=== PATIENT | male | born 1955 | race Two or more races ===

== ENCOUNTER 2018-09-18 06:30 | Inpatient (IN) | payer OTHER ==
[2018-09-16 10:09] LABS: BASOPHILS % 0.6 % (0.0-1.0); EOSINOPHILS # (AUTO) 0.4 (0.0-0.4); EOSINOPHILS % 5.9 % (0.0-6.0); HEMATOCRIT 48.8 % (38.2-49.6); HEMOGLOBIN 16.5 g/dL (14.0-18.0); LYMPHOCYTES # (AUTO) 2.3 (1.0-3.2); LYMPHOCYTES % 35.8 % (18.0-39.1); MEAN CORPUSCULAR HEMOGLOBIN 28.6 pg (28-32); MEAN CORPUSCULAR HGB CONC 33.8 g/dL (31-35); MEAN CORPUSCULAR VOLUME 84.7 fL (81-99); MONOCYTES # (AUTO) 0.5 (0.2-0.8); MONOCYTES % 8.6 % (4.4-11.3); NEUTROPHILS # (AUTO) 3.1 (2.1-6.9); NEUTROPHILS % 48.8 % (38.7-80.0); PLATELET COUNT 191 x10e3/uL (140-360); RED BLOOD COUNT 5.76 x10e6/uL (4.3-5.7); RED CELL DISTRIBUTION WIDTH 12.2 % (11.7-14.4)
[2018-09-16 10:28] LABS: INR 0.81; PARTIAL THROMBOPLASTIN TIME 26.3 seconds (23.8-35.5); PROTHROMBIN TIME 11.7 seconds (11.9-14.5)
[2018-09-16 10:38] LABS: ALANINE AMINOTRANSFERASE 32 IU/L (0-55); ALBUMIN 3.9 g/dL (3.5-5.0); ALKALINE PHOSPHATASE 57 IU/L (40-150); ANION GAP 11.2 mmol/L (8-16); BLOOD UREA NITROGEN 21 mg/dL (7-26); BUN/CREATININE RATIO 18 (6-25); CALCIUM 9.6 mg/dL (8.4-10.2); CARBON DIOXIDE 25 mmol/L (22-29); CHLORIDE 102 mmol/L (98-107); CREATININE, SERUM 1.18 mg/dL (0.72-1.25); EST GLOMERULAR FILTRATION RATE > 60 ML/MIN (60-); GLUCOSE 216 mg/dL (74-118); POTASSIUM 4.2 mmol/L (3.5-5.1); SODIUM 134 mmol/L (136-145)
[~2018-09-18] VITALS: Ht 170.2 cm; Wt 80.8 kg
[~2018-09-18 06:30] MED LIST: FARXIGA PO; FINASTERIDE5 MG PO; LOSARTAN POTASS25 MG PO; METFORMIN HCL500 MG PO; PRANDIN1 MG PO
--- OUTSIDE RECORDS SUMMARY | 2018-09-18 06:32 | XMS REPORT ---
Author Author [facility] Address Unknown Phone Unavailable Care Team Providers Care Local Tanker Truck Driver Name Role Phone Unavailable Unavailable Problems This patient has no known problems. Allergies, Adverse Reactions, Alerts This patient has no known allergies or adverse reactions. Medications This patient has no known medications. Encounters Start Date/Time End Date/Time Encounter Type Admission Type Attending Clinicians Care Facility Care Department Encounter ID 2017-07-14 00:00:00 2017-07-15 00:00:[address] [facility] [id number]
[2018-09-18] MEDS ORDERED: CEFTRIAXONE SOD 1 GM/NS 50 ML 50 ML IV ONE (07:36)
[2018-09-18] MEDS: GENTAMICIN 80MG/NS 100 ML 200 ML IV ONE (07:48)
[2018-09-18] MEDS ORDERED: INSULIN REGULAR, HUMAN 100 UNIT/1 ML 3ML VIAL ONE ×2 (09:32→12:18)
[2018-09-18] MEDS ORDERED: IOPAMIDOL 610MG/1ML 300 MG/ML VIAL IV ONE (10:01)
[2018-09-18] MEDS ORDERED: B&O 60MG R/S 60 MG SUPP PR ONE (10:01)
[2018-09-18] MEDS ORDERED: ONDANSETRON HCL INJ 2MG/ML 2ML 2 MG/ML VIAL IV PRN (11:45)
[2018-09-18] MEDS ORDERED: DIPHENHYDRAMINE HCL 25 MG CAP PO PRN (11:45)
[2018-09-18] MEDS: CEFTRIAXONE SOD 1 GM/NS 50 ML 50 ML IV SCH (11:45)
[2018-09-18] MEDS ORDERED: BELLADONNA/OPIUM 30 MG SUPP RC PRN (11:45)
[2018-09-18 12:06] LABS: BASOPHILS % 0.6 % (0.0-1.0); EOSINOPHILS # (AUTO) 0.3 (0.0-0.4); EOSINOPHILS % 4.7 % (0.0-6.0); HEMATOCRIT 48.3 % (38.2-49.6); HEMOGLOBIN 16.1 g/dL (14.0-18.0); LYMPHOCYTES # (AUTO) 2.8 (1.0-3.2); LYMPHOCYTES % 45.2 % (18.0-39.1); MEAN CORPUSCULAR HEMOGLOBIN 28.6 pg (28-32); MEAN CORPUSCULAR HGB CONC 33.3 g/dL (31-35); MEAN CORPUSCULAR VOLUME 85.9 fL (81-99); MONOCYTES # (AUTO) 0.5 (0.2-0.8); MONOCYTES % 7.9 % (4.4-11.3); NEUTROPHILS # (AUTO) 2.6 (2.1-6.9); NEUTROPHILS % 41.4 % (38.7-80.0); PLATELET COUNT 159 x10e3/uL (140-360); RED BLOOD COUNT 5.62 x10e6/uL (4.3-5.7)
[2018-09-18 12:30] VITALS: BP 166/86
[2018-09-18 12:59] LABS: ANION GAP 11.7 mmol/L (8-16); BLOOD UREA NITROGEN 17 mg/dL (7-26); BUN/CREATININE RATIO 16 (6-25); CALCIUM 8.6 mg/dL (8.4-10.2); CARBON DIOXIDE 25 mmol/L (22-29); CHLORIDE 104 mmol/L (98-107); CREATININE, SERUM 1.05 mg/dL (0.72-1.25); EST GLOMERULAR FILTRATION RATE > 60 ML/MIN (60-); GLUCOSE 223 mg/dL (74-118); POTASSIUM 4.7 mmol/L (3.5-5.1); SODIUM 136 mmol/L (136-145)
--- NOTE | 2018-09-18 13:00 | NUR ---
RECEIVED PATIENT FROM RECOVERY. PATIENT A/O X3 EVEN RESPIRATIONS ON RA. BOWEL SOUNDS ACTIVE, SKIN INTACT, NO EDEMA. SCD'S BILATERALLY. RUIZ IN PLACE, CBI- MESSER COLOR URINE, NO CLOTS. PATIENT AMBULATORY WITH STANDBY ASSIST. RIGHT HAND 20 GAUGE IV WITH IVF @ 75 CC/HR. BED LOW, WHEELS LOCKED, SIDE RAILS X2. CALL LIGHT IN REACH WILL CONTINUE TO MONITOR PATIENT.
[2018-09-18] MEDS: PHENAZOPYRIDINE HCL 100 MG TAB PO SCH ×2 (13:09→17:39)
[2018-09-18 13:22] VITALS: BP 166/86
[2018-09-18] MEDS ORDERED: MIDAZOLAM HCL 2 MG/2 ML VIAL ONE (13:51)
[2018-09-18] MEDS ORDERED: FENTANYL CITRATE/PF 100MCG/2 ML INJ ONE (13:51)
[2018-09-18] MEDS ORDERED: DEXTROSE 50% SYRINGE 50 ML IV PRN (15:00)
[2018-09-18] MEDS ORDERED: HYDRALAZINE HCL 25 MG TAB PO PRN (15:00)
[2018-09-18 15:45] VITALS: BP_SYST 74
[2018-09-18] MEDS: SOD CHL 0.45%/POT CHL 20MEQ 1,000 ML IV SCH ×2 (16:29→22:40)
[2018-09-18] MEDS: DOCUSATE SODIUM 100 MG CAP PO SCH (17:39)
[2018-09-18] MEDS: INSULIN LISPRO 100 UNIT/1 ML 3ML VIAL SQ SCH ×2 (17:39→20:32)
[2018-09-18] MEDS: REPAGLINIDE 1 MG TAB PO SCH (17:39)
[2018-09-18] MEDS ORDERED: PROPOFOL IV EMULSION 10 MG/ML 20 ML VIAL ONE (17:55)
[2018-09-18] MEDS ORDERED: ONDANSETRON HCL INJ 2MG/ML 2ML 2 MG/ML VIAL ONE (17:55)
[2018-09-18] MEDS ORDERED: LIDOCAINE HCL 2% LOCAL INJ 5 ML SDV VIAL INJ ONE (17:55)
[2018-09-18] MEDS ORDERED: PHENYLEPHRINE HCL 1% 10 MG/ML VIAL ONE (17:55)
[2018-09-18] MEDS ORDERED: FUROSEMIDE INJ 10 MG/ML 4 ML VIAL ONE (17:55)
[2018-09-18] MEDS ORDERED: SEVOFLURANE INHAL SOLN 250 ML PEN BTL ONE (17:55)
--- NOTE | 2018-09-18 19:08 | NUR ---
received patient aaox3, stable condition, resting in bed at this time. no needs voiced. bradley cath to CBI0 output strawberry/orange. denies pain. will continue to monitor. call light within reach, bed locked and in lowest position.
[2018-09-18 20:00] VITALS: BP 146/81
[2018-09-18 20:16] VITALS: BP 146/81
--- NOTE | 2018-09-18 21:46 | History and Physical ---
PRIMARY CARE PHYSICIAN: Desiree Gilbert MD. COMPUTER SYSTEM SPECIALIST: Dr. Bull Marrero. REASON FOR ADMISSION: Status post transurethral resection procedures. The patient has enlarged prostate with urinary retention. HISTORY: The patient is 63-year-old male status post TURP procedures today. The patient is stable. The patient had normal WBC 6.17, hemoglobin and hematocrit of 16 and 48. The patient is on NURSE ADMINISTRATOR pump, IV fluid and he does have continuous urinary bladder irrigation for hematuria and postoperative care. The patient is stable at this time. PAST MEDICAL HISTORY: Enlarged prostate, hypertension, diabetes, colon cancer. PAST SURGICAL HISTORY: Tumor resection in 2008 that is benign. SOCIAL HISTORY: The patient does not smoke or use alcohol. No recreational drugs. ALLERGIES: NO KNOWN ALLERGIES. HOME MEDICATION: Finasteride, losartan, metformin, Prandin, and Farxiga. PHYSICAL EXAMINATION: VITAL SIGNS: Temperature is 98, blood pressure 166/86, pulse rate is 65, respiration 18. GENERAL: The patient is not in acute distress. He is awake. HEENT: Normocephalic, atraumatic. Anicteric. NECK: Supple grossly. PULMONARY: Clear. CARDIOVASCULAR: Regular rhythm. ABDOMEN: Soft. Postop Nuno catheter in place. Continue with irrigation. EXTREMITIES: No cyanosis or edema. NEUROLOGIC: No gross focal deficit. LABORATORY DATA: Sodium is 136, potassium 4.7, chloride 104, bicarb 25, BUN 17, creatinine 1.05. Glucose is 223. IMPRESSION: 1. Status post postop today transurethral resection of the prostate. The patient has a Nuno catheter. He is on continuous irrigation for the urinary bladder. 2. Diabetes type 2, on oral hypoglycemic medication with hyperglycemia postop now. 3. Hypertension. PLAN: Adjust home medication. Insulin sliding scale coverage. Postoperative care. NURSE ADMINISTRATOR, patient-controlled IV fluid, continuous irrigation. Incentive spirometry. MD RANDALL Blackwood/MODL /[id number]
[2018-09-19] VITALS (8 sets, daily range): BP systolic 117–134; BP diastolic 63–76
[2018-09-19] MEDS: ACETAMINOPHEN/CODEINE 300MG - 30MG TAB PO PRN ×2 (01:16→20:38)
[2018-09-19] MEDS: SOD CHL 0.45%/POT CHL 20MEQ 1,000 ML IV SCH (06:29)
--- NOTE | 2018-09-19 07:22 | NUR ---
RECEIVED PATIENT AWAKE IN BED NO SIGNS OF DISTRESS. BED LOW, WHEELS LOCKED, SIDE RAILS X2. CALL LIGHT IN REACH WILL CONTINUE TO MONITOR PATIENT.
--- NOTE | 2018-09-19 08:15 | NUR ---
PATIENT A/O X3, UNLABORED RESPIRATIONS ON RA. PATIENT AMBULATORY. SCD'S AND COMPRESSION STOCKINGS BILATERALLY. RUIZ IN PLACE- CBI, URINE COLOR CLEAR ORANGE. RIGHT HAND 20 GAUGE IV WITH IVF @ 75 CC/HR. VITAL SIGNS STABLE, NO SIGNS OF DISTRESS. CALL LIGHT IN REACH WILL CONTINUE TO MONITOR PATIENT.
[2018-09-19] MEDS: FINASTERIDE 5 MG TAB PO SCH (08:52)
[2018-09-19] MEDS: LOSARTAN POTASSIUM 25 MG TAB PO SCH (08:52)
[2018-09-19] MEDS: REPAGLINIDE 1 MG TAB PO SCH ×3 (08:52→17:17)
[2018-09-19] MEDS: DOCUSATE SODIUM 100 MG CAP PO SCH ×2 (08:52→17:17)
[2018-09-19] MEDS: PHENAZOPYRIDINE HCL 100 MG TAB PO SCH ×3 (08:52→17:17)
[2018-09-19] MEDS: INSULIN LISPRO 100 UNIT/1 ML 3ML VIAL SQ SCH ×4 (08:55→21:55)
[2018-09-19 09:03] LABS: BASOPHILS % 0.4 % (0.0-1.0); EOSINOPHILS # (AUTO) 0.2 (0.0-0.4); EOSINOPHILS % 2.1 % (0.0-6.0); HEMATOCRIT 47.6 % (38.2-49.6); HEMOGLOBIN 16.3 g/dL (14.0-18.0); LYMPHOCYTES # (AUTO) 1.9 (1.0-3.2); LYMPHOCYTES % 17.7 % (18.0-39.1); MEAN CORPUSCULAR HEMOGLOBIN 29.1 pg (28-32); MEAN CORPUSCULAR HGB CONC 34.2 g/dL (31-35); MONOCYTES # (AUTO) 0.8 (0.2-0.8); MONOCYTES % 7.3 % (4.4-11.3); NEUTROPHILS # (AUTO) 7.8 (2.1-6.9); PLATELET COUNT 169 x10e3/uL (140-360)
[2018-09-19 09:16] LABS: ANION GAP 10.8 mmol/L (8-16); BLOOD UREA NITROGEN 12 mg/dL (7-26); BUN/CREATININE RATIO 11 (6-25); CALCIUM 8.5 mg/dL (8.4-10.2); CARBON DIOXIDE 28 mmol/L (22-29); CHLORIDE 98 mmol/L (98-107); CREATININE, SERUM 1.13 mg/dL (0.72-1.25); EST GLOMERULAR FILTRATION RATE > 60 ML/MIN (60-); GLUCOSE 282 mg/dL (74-118); POTASSIUM 4.8 mmol/L (3.5-5.1); SODIUM 132 mmol/L (136-145)
[2018-09-19] MEDS ORDERED: SODIUM CHLORIDE 0.9% 250ML 250 ML ONE (12:16)
[2018-09-19] MEDS: CEFTRIAXONE SOD 1 GM/NS 50 ML 50 ML IV SCH (12:27)
[2018-09-20] VITALS: BP 112/68
[2018-09-20 04:00] VITALS: BP 121/69
[2018-09-20 05:54] LABS: BASOPHILS % 0.4 % (0.0-1.0); EOSINOPHILS # (AUTO) 0.3 (0.0-0.4); EOSINOPHILS % 3.2 % (0.0-6.0); HEMATOCRIT 50.7 % (38.2-49.6); LYMPHOCYTES # (AUTO) 2.5 (1.0-3.2); LYMPHOCYTES % 24.4 % (18.0-39.1); MEAN CORPUSCULAR HEMOGLOBIN 28.9 pg (28-32); MEAN CORPUSCULAR HGB CONC 33.5 g/dL (31-35); MEAN CORPUSCULAR VOLUME 86.1 fL (81-99); MONOCYTES # (AUTO) 0.9 (0.2-0.8); MONOCYTES % 8.4 % (4.4-11.3); NEUTROPHILS # (AUTO) 6.4 (2.1-6.9); NEUTROPHILS % 63.4 % (38.7-80.0); PLATELET COUNT 145 x10e3/uL (140-360); RED BLOOD COUNT 5.89 x10e6/uL (4.3-5.7); RED CELL DISTRIBUTION WIDTH 11.9 % (11.7-14.4)
[2018-09-20] MEDS: ACETAMINOPHEN/CODEINE 300MG - 30MG TAB PO PRN ×2 (06:15→20:56)
[2018-09-20 06:18] LABS: ANION GAP 12.3 mmol/L (8-16); BLOOD UREA NITROGEN 12 mg/dL (7-26); BUN/CREATININE RATIO 11 (6-25); CALCIUM 9.1 mg/dL (8.4-10.2); CARBON DIOXIDE 25 mmol/L (22-29); CHLORIDE 100 mmol/L (98-107); CREATININE, SERUM 1.06 mg/dL (0.72-1.25); EST GLOMERULAR FILTRATION RATE > 60 ML/MIN (60-); GLUCOSE 220 mg/dL (74-118); POTASSIUM 4.3 mmol/L (3.5-5.1); SODIUM 133 mmol/L (136-145)
[2018-09-20 08:10] VITALS: BP 122/68
[2018-09-20] MEDS: FINASTERIDE 5 MG TAB PO SCH (09:00)
[2018-09-20] MEDS: PHENAZOPYRIDINE HCL 100 MG TAB PO SCH ×3 (09:00→16:55)
[2018-09-20] MEDS: LOSARTAN POTASSIUM 25 MG TAB PO SCH (09:00)
[2018-09-20] MEDS: DOCUSATE SODIUM 100 MG CAP PO SCH ×2 (09:00→16:55)
[2018-09-20] MEDS: REPAGLINIDE 1 MG TAB PO SCH ×3 (09:00→16:55)
[2018-09-20] MEDS: INSULIN LISPRO 100 UNIT/1 ML 3ML VIAL SQ SCH ×4 (09:01→20:37)
[2018-09-20 10:30] VITALS: BP 122/68
[2018-09-20 12:20] VITALS: BP 115/67
[2018-09-20] MEDS: CEFTRIAXONE SOD 1 GM/NS 50 ML 50 ML IV SCH (12:30)
--- NOTE | 2018-09-20 13:54 | NUR ---
RECEIVED PATIENT RESTING IN BED NO SIGNS OF DISTRESS. BED LOW, WHEELS LOCKED, SIDE RAILS X2. CALL LIGHT IN REACH WILL CONTINUE TO MONITOR PATIENT. Addendum: 09/20/18 at 1400 by Opal Bartlett RN WRONG TIME: DONE AT 0725
--- NOTE | 2018-09-20 15:25 | NUR ---
REMOVED PATIENTS RUIZ CATHETER. CATHETER TIP INTACT ON REMOVAL. PATIENT DUE TO VOID.
--- NOTE | 2018-09-20 16:30 | NUR ---
Visit made by the Spiritual Care Department Pastoral Visitor, Hussain Miller. PV provided pastoral presence, hospitality, and supportive listening. Pastoral Visitor informed pt/family of the scope of [employer] and availability. BRIDGETT RAMSAY [employer] Spiritual Care Department O: [phone] Pager: [phone] ([phone] number calling from)
[2018-09-20 16:45] VITALS: BP 121/76
--- NOTE | 2018-09-20 18:25 | NUR ---
PATIENT HAS VOIDED SINCE RUIZ REMOVAL.
[2018-09-20] MEDS ORDERED: TYLENOL WITH C1 EACH PO (18:40)
[2018-09-20] MEDS ORDERED: LEVAQUIN500 MG PO (18:40)
[2018-09-20] MEDS ORDERED: COLACE100 MG PO (18:40)
--- NOTE | 2018-09-20 20:23 | NUR ---
Assessment done.ambulates .no resp.distress.no pain voiced.scd is placed.collecting series of urine.bed locked and in lowest position.phone and call light within reach.instructed to call for assistance as needed.
--- NOTE | 2018-09-20 20:44 | NUR ---
Collecting series of urine.no clots.urine is clear and orange color.as per shift report pt can go home when urine is cleared.paged to to get discharge order.
--- NOTE | 2018-09-20 21:35 | NUR ---
Assessment done.stable condition.discharge instruction given.informed the pt go to er incase of chest pain ,bleeding temp>101.verbalized understanding.iv removed.cannula intact.pressure dressing applied.pt left room.
--- NOTE | 2018-11-02 04:57 | Operative Report ---
DATE OF PROCEDURE: 09/18/2018 SURGEON: Bull Marrero MD PREOPERATIVE DIAGNOSES: 1. Obstructive benign prostatic hypertrophy. 2. Incomplete bladder emptying. POSTOPERATIVE DIAGNOSES: 1. Obstructive benign prostatic hypertrophy. 2. Incomplete bladder emptying. 3. Bulbourethral stricture disease. OPERATIONS PERFORMED: 1. Cystourethroscopy with calibration and dilation of urethral stricture (separate procedure was performed for the diagnosis of stricture). 2. Cystourethroscopy with bilateral ureteral catheterization and retrograde ureteropyelography (separate procedure was performed to evaluate the upper tracts in light of the chronic incomplete bladder emptying). 3. Interpretation of retrograde ureteropyelography. 4. Supervision of fluoroscopy, no radiologist present. 5. Cystourethroscopy with transurethral resection of the prostate utilizing the plasma button electrode. ANESTHESIA: General. COMPLICATIONS: None. CLINICAL SUMMARY: Narinder Gilbert is a 63-year-old man with the above preoperative diagnoses. He is brought for the above procedures. He is aware of the risks of bleeding, infection, injury to adjacent structures, incontinence, impotence, retrograde ejaculation, need for additional procedures, and elected to proceed. OPERATIVE PROCEDURE IN DETAIL: Informed consent was verified. Narinder Gilbert was properly identified, taken to the operating room, placed on the cystoscopy table in supine position. Anesthesia was uneventfully begun. The patient was then carefully gently repositioned in the dorsal lithotomy position with all pressure points well padded. His genitalia were prepared and draped in the usual sterile fashion. The 22.5-Surinamese cystoscope sheath with the visual obturator in place was atraumatically inserted into the patient's urethra. It was guided down the unremarkable distal urethra to the bulbar region where there was a bulbourethral stricture. We calibrated the stricture probably up 16-Surinamese in size and gently dilated to 22.5-Surinamese in size. We then entered through the patient's normal sphincteric region and went through the prostate bed, which was significant for bilobar prostatic hypertrophy with kissing lateral lobes and an elevated median bar causing visualized obstruction at the bladder neck as well. Panendoscopy of the urinary bladder revealed grade 1-2 trabeculations, but no tumors, no stones, and no diverticula. Normally positioned and configured. Ureteral orifices were identified. An 8-Surinamese catheter was used to cannulate each ureter and retrograde ureteropyelograms were performed. Interpretation of retrograde ureteropyelography contrast was instilled in retrograde fashion bilaterally. There were no tumors, no stones, and no diverticula. Unobstructed drainage was observed bilaterally fluoroscopically. The patient's bladder was drained. Cystoscope was withdrawn. We then introduced the resectoscope under direct vision with visual obturator as we passed through the bulbar region. We dilated that stricture again this time to 27-Surinamese in size. We then proceeded with performing transurethral resection of the prostate utilizing the plasma button electrode. We vaporized first the bladder neck and then we proceeded with performing transurethral vaporization of the prostate from the bladder neck tube, but never passed the verumontanum and down the surgical capsule. Pinpoint electrocautery was utilized to achieve hemostasis. The patient's bladder was drained. The resectoscope was withdrawn. A Nuno catheter was placed. It was irrigated to and fro to ensure it worked properly. Belladonna and opium suppository were placed revealing a large prostate that is smooth and nonfluctuant without any nodules. The patient was then uneventfully reversed from anesthesia and taken to recovery room in stable condition. There were no complications at the end of the procedure. He tolerated the procedure well. Estimated blood loss was minimal. We will proceed with routine postoperative care and ongoing urological followup. Bull Marrero MD [place]/MODL /[id number] cc: Desiree Gilbert MD
== END 2018-09-20 21:35 | disposition home or self-care (01) | DRG 713 ==
LOC: OR 06:30 → PACU V 11:34 → MED/SURG 12:32
PROVIDERS: ADMIT Internal Medicine; ATTEND Internal Medicine
PROC: 0T788ZZ Dilation of Bilateral Ureters, Via Natural or Artificial Opening Endoscopic (ICD-10-PCS; 2018-09-18)
PROC: BT141ZZ Fluoroscopy of Kidneys, Ureters and Bladder using Low Osmolar Contrast (ICD-10-PCS; 2018-09-18)
PROC: 0VB08ZZ Excision of Prostate, Via Natural or Artificial Opening Endoscopic (ICD-10-PCS; principal; 2018-09-18 09:00)
PROC: 0T7D8ZZ Dilation of Urethra, Via Natural or Artificial Opening Endoscopic (ICD-10-PCS; 2018-09-18 09:00)
DX: N40.1 Benign prostatic hyperplasia with lower urinary tract symptoms (principal); N13.8 Other obstructive and reflux uropathy; N39.41 Urge incontinence; R39.14 Feeling of incomplete bladder emptying; R35.1 Nocturia; R39.15 Urgency of urination; N32.81 Overactive bladder; E11.65 Type 2 diabetes mellitus with hyperglycemia; Z79.84 Long term (current) use of oral hypoglycemic drugs; N35.919 Unspecified urethral stricture, male, unspecified site
CPT/HCPCS: 36415; 74420; 80048; 80053; 82948; 83735; 85025; 85610; 85730; 93005; J0696; J1580; J1817; J1940; J2001; J2250; J2370; J2405; J3010; J7050